=== PATIENT | female | born 1975 | race African-American/Black ===

== ENCOUNTER 2024-02-07 06:32 | Day surgery (SDC) | payer OTHER ==
[~2024-02-07] VITALS: Ht 170.2 cm; Wt 63.5 kg
[2024-02-07] MEDS ORDERED: KETOROLAC 30 MG/ML VIAL ONE (07:30)
[2024-02-07] MEDS: KETOROLAC 30 MG/ML VIAL IVP ONE (07:53)
[2024-02-07] MEDS: LIDOCAINE 2% 100 MG/5 ML UJET TP ONE (08:02)
== END 2024-02-07 08:58 | disposition home or self-care (01) ==
LOC: MDS 06:32 → MMU 06:32 → MDS 08:58
PROVIDERS: ATTEND Internal Medicine Gastroenterology
DX: Z12.11 Encounter for screening for malignant neoplasm of colon (principal); Z88.7 Allergy status to serum and vaccine; Z98.890 Other specified postprocedural states
CPT/HCPCS: 45378; J1885